=== PATIENT | male | born 1965 | race Caucasian/White ===

== ENCOUNTER 2022-09-01 19:30 | Outpatient (CLI) | payer BC | END 2022-09-01 19:31 | disposition home or self-care (01) | LOC: SLEEPLAB 19:30 | PROVIDERS: ATTEND Family Medicine | DX: G47.33 Obstructive sleep apnea (adult) (pediatric) (principal); R53.83 Other fatigue; R06.83 Snoring; E66.9 Obesity, unspecified; Z68.32 Body mass index [BMI] 32.0-32.9, adult; I10 Essential (primary) hypertension | CPT/HCPCS: 95811 ==